=== PATIENT | female | born 1945 | race Caucasian/White ===

== ENCOUNTER 2025-02-05 13:17 | Outpatient (AMB) | payer OTHER, SELFPAY ==
--- NOTE | 2025-02-05 13:21 | A.OFFPC_ITS ---
Vital Signs 02/05/25 13:22 Height 5 ft Weight 106 lb 8 oz BMI 20.8 BP 124/78 Position Sitting Intake Visit Reasons: establish care Psychology Physician Required: No Accompanied by: everette Allergies No Known Allergies Allergy (Verified 02/05/25 13:35) Medication List - Last Reconciled 02/05/25 by Reny Lizama PA-C No Known Home Meds Tobacco use date assessed: 02/05/25 Fall risk assessment: 1 Fall in past year Last assessed Fall Risk: 02/05/25 Dental Screening Dental Screen Date: 02/05/25 Did you have a dental visit in the last 12 months?: No Did you have a dental problem in the last 6 months where you did not have access to dental care?: No Was dental information given to patient?: No HPI establish care HPI Details 79-year-old female coming to the office with the 1st time. Presenting with leg swelling and toenail fungus. Leg swelling has been ongoing for several months, associated with skin changes and fluid pooling, but no warmth. She was previously hospitalized in [place] with cellulitis of the LLE. Possible history of kidney failure diagnosed in [place], contributing to the swelling. Toenail fungus affects most toes, with topical treatment planned. SHe has bilateral bunions. [facility] Family History Mother Ovarian cancer Father No problems noted. Sister No problems noted. Social History Household Members: Family Both parents involved: No Caregiver staying overnight: Yes (daughter will be her caregiver ) Housing: House Are you a primary pet care worker to a significant other at home: No Do you presently have visiting nurse or other home services: No Alcohol intake: never Patient Tobacco Use Status: Never used Tobacco e-Cigarette/Vaping Use: Never Used service: No Current occupational status: unemployed and retired Cognitive needs: No Hearing needs: No Vision needs: No Questionnaire PHQ-9 Over the last 2 weeks, how often have you been bothered by any of the following problems? 1. Little interest or pleasure in doing things: not at all 2. Feeling down, depressed, or hopeless: several days 3. Trouble falling or staying asleep, or sleeping too much: more than half the days 4. Feeling tired or having little energy: more than half the days 5. Poor appetite or overeating: not at all 6. Feeling bad about yourself - or that you are a failure or have let yourself or your family down: several days 7. Trouble concentrating on things, such as reading the newspaper or watching t elevision: several days 8. Moving or speaking so slowly that other people could have noticed. Or the opposite - being so fidgety or restless that you have been moving around a lot more than usual: not at all 9. Thoughts that you would be better off or of hurting yourself in some way: several days Total score: 8 Depression Screening Interpretation: Positive (referral to counseling) Depression Screening Follow-up: Existing condition and Declines treatment Depression Screening Done: Yes 75252 - PHQ-9 Billing: Yes Source: Developed by Drs. Martin Jordan, Heidi Hernandez, Horacio Pagan and colleagues, with an educational candelario from [employer]. Thrive Questionnaire Date Thrive assessed: 02/05/25 I am a: Patient What is your living situation today?: I have a steady place to live Within the past 12 months, did the food you bought not last and you didn't have the money to get more?: Sometimes True Within the past 12 months, did you worry whether your food would run out before you got money to buy more?: Sometimes True Do you have trouble paying for medicines?: No Do you have trouble getting transportation to medical appointments?: No Do you have trouble paying your heating and electricity bill?: No Do you have trouble taking care of your child, family member or friend?: No Do you have trouble with day-to-day activities such as bathing, preparing meals, shopping, managing finances, etc.?: No Are you currently unemployed and looking for a job?: No Are you interested in more education?: No Please select the resources that you would like help with: Food and Utilities Currently or been in a relationship where the following occur: No concerns reported THRIVE Score: 2 AUDIT C Alcohol Use Questionnaire (AUDIT-C) 1. How often do you have a drink containing alcohol?: Never Total Score: 0 ROBIN-7 AMB Questionnaire ROBIN-7 Date ROBIN - 7 assessed: 02/05/25 Feeling nervous, anxious, or on edge: 1 = Several days Not being able to stop or control worryin = Several days Worrying too much about different things: 1 = Several days Trouble relaxin = Several days Being so restless that it is hard to sit still: 1 = Several days Becoming easily annoyed or irritable: 1 = Several days Feeling afraid as if something awful might happen: 0 = Not at all Total ROBIN-7 score (0-4 normal; 5-9 mild; 10-14 moderate; 15-21 severe): 6 Source: Developed by Drs. Martin Jordan, Heidi Hernandez, Horacio Pagan and colleagues, with an educational candelario from [employer]. ROBIN-7 Assessment Billing ROBIN-7 Assessment Tool: ROBIN-7 Assessment 83603 Review of Systems Const Denies body aches, Denies fatigue, Denies fever(s), Denies frequent falls, Denies headache(s) and Denies weakness Eyes Reports no additional complaints and Denies change in vision ENT Denies dysphagia, Denies dizziness, Denies facial pain, Denies headache(s), Denies nasal congestion and Denies odynophagia Card Denies chest pain, Denies syncope, Denies irregular heart rhythm, Denies leg edema, Denies lightheadedness and Denies dyspnea Resp Denies cough and Denies dyspnea GI Denies constipation, Denies dysphagia, Denies dyspepsia, Denies diarrhea, Denies nausea, Denies odynophagia and Denies vomiting Denies urinary frequency, Denies dysuria, Denies urinary hesitancy and Denies urinary urgency Musc Denies back pain and Denies myalgias Skin/Breast Reports system reviewed and no additional complaints, except as documented Neuro Denies dizziness, Denies syncope, Denies frequent falls, Denies headache(s) and Denies weakness Psych Reports no additional complaints Endo Denies fatigue Physical exam (Primary Care) Vital Signs: Last Vital Signs BP 124/78 02/05/25 13:22 BMI result Body Mass Index 20.8 Tobacco/Smoking Status: Tobacco use Status Tobacco use date assessed 02/05/25 02/05/25 13:35 Patient Tobacco Use Status Never used Tobacco 02/05/25 13:35 e-Cigarette/Vaping Use Never Used 02/05/25 13:35 PHQ-9: PHQ-9 Score PHQ-9: Total score 8 02/05/25 16:37 Depression Screening Interpretation: Positive (referral to counseling) Depression Screening Follow-up: Existing condition and Declines treatment Thrive Assessment: Date of Thrive Assessment Date Thrive assessed 02/05/25 02/05/25 13:35 Currently or been in a relationship where the following occur: No concerns reported Const General: cooperative, healthy appearing, comfortable and no acute distress Orientation/consciousness: patient oriented x3 HENMT Head: Yes normocephalic Ears: hearing grossly normal bilaterally General nose exam: Normal external nose present Eyes General: appearance normal, both eyes and all related structures Conjunctivae: conjunctivae normal Neck Neck: Yes full ROM and Yes no lymphadenopathy Resp Effort & Inspection: normal respiratory effort Auscultation: clear to auscultation bilaterally, no crackles, no rales, no rhonchi and no wheezes Cardio Rate: regular rate Rhythm: regular rhythm Skin General skin exam: no rashes or lesions noted Neuro General: patient oriented x3 Gait exam (Neuro): Normal gait present Extrem Other: Mild edema of bilateral lower extremities with overlying skin changes in dry flaky skin. No erythema, warmth, tenderness to palpation in bilateral lower extremities includes in the calves. Intact strength, sensation and pulses in bilateral lower extremities. Yellow thickened toenails affecting all toes and bilateral bunions General: Yes normal to inspection, Yes full ROM and No edema Psych Affect: normal affect Attitude: cooperative Insight: Good insight present (Psych) Judgement: Good judgement present (Psych) Coding Level of Care Code New Pt Level 4 (53943) Diagnoses Depression F32.A Anxiety F41.9 Lower extremity weakness R29.898 Leg swelling M79.89 Onychomycosis B35.1 Additional Codes ROBIN-7 Assessment Billing - ROBIN-7 Assessment Tool: ROBIN-7 Assessment 02905 ([id number]) PHQ-9 - 74717 - PHQ-9 Billing: Yes ([id number]) Assessment & Plan Assessment & Plan (1) Depression: Code(s): F32.A - Depression, unspecified Category: Medical Plan: For depression and anxiety we did talk about possible treatment with medication which was declined today. She is willing to see a counselor and agrees to reach out if she would like additional resources or medical management. (2) Anxiety: Code(s): F41.9 - Anxiety disorder, unspecified Category: Medical Plan: See above. (3) Lower extremity weakness: Code(s): R29.898 - Other symptoms and signs involving the musculoskeletal system Category: Medical Plan: Patient reporting lower extremity weakness secondary to prolonged hospital stay while [place]. Referral was placed to physical therapy today as it feels to be beneficial for her. (4) Leg swelling: Code(s): M79.89 - Other specified soft tissue disorders Category: Medical Plan: Patient having bilateral leg swelling with overlying skin changes and dry flaky skin. Ordered for blood work to look for underlying cause including kidney function and BNP. It also offer a vascular workup including a referral to nd scular surgery which was declined by the patient today. Given her history of cellulitis I did review red flag symptoms and when to present for re-evaluation. At this time low concern for infection as there is no erythema, tenderness to palpation, warmth and no calf tenderness. In the meantime recommend patient exercise as tolerated, elevate the legs when possible and compression stockings. (5) Onychomycosis: Code(s): B35.1 - Tinea unguium Category: Medical Plan: Prescription sent for topical treatment. Plan I discussed with the patient the importance of managing leg swelling through lifestyle modifications such as leg elevation and compression stockings. We also talked about the need for blood work to assess kidney function and other potential causes of swelling. The patient was informed about the treatment options for toenail fungus, including topical and oral medications. Referrals for eye care and physical therapy were also arranged to address her overall health maintenance needs. This note was constructed using voice recognition software. While every effort has been made to ensure accuracy and pulmonary specialist, still areas may have been included sometimes these areas may affect the content or meeting of the given symptoms. Total time spent caring for the patient today was 30 minutes. This includes time spent before the visit reviewing the chart, time spent during the visit, and time spent after the visit and documentation. Patient was informed and verbally consented to the use of an ambient scribe for clinic note documentation during this visit. Orders: Orders TSH reflex Free T4 02/05/25 Z13.29 - Encounter for screening for other suspected endocrine disorder Vitamin D 25-OH Total 02/05/25 Z13.21 - Encounter for screening for nutritional disorder B Type Natriuretic Peptide 08/27/25 M79.89 - Other specified soft tissue disorders Vitamin B12 and Folate 02/05/25 Z13.21 - Encounter for screening for nutritional disorder Lipid Panel 02/05/25 Z13.220 - Encounter for screening for lipoid disorders PT Evaluation and Treatment 02/05/25 R29.898 - Other symptoms and signs involving the musculoskeletal system Complete Blood Count Auto Diff 02/05/25 M79.89 - Other specified soft tissue disorders, Z00.00 - Encounter for general adult medical examination without abnormal findings Comprehensive Met. Panel 02/05/25 M79.89 - Other specified soft tissue disorders, Z00.00 - Encounter for general adult medical examination without abnormal findings Referrals Optometry Referral Z00.00 - Encounter for general adult medical examination without abnormal findings Counseling Referral F32.A - Depression, unspecified, F41.9 - Anxiety disorder, unspecified Medications: New ciclopirox 8% 1 appl topical BEDTIME 6.6 mL 0RF 4 weeks
[2025-02-05 13:22] VITALS: BP 124/78; BMI 20.8
--- OUTSIDE RECORDS SUMMARY | 2025-02-05 14:00 | XMS_ITS | Patient Health Record ---
Author Organization [facility] Address [address] [place] [address] Care Team Providers Care Respiratory Support Technician Name Role Phone Stevenson READ, Xochilt Primary Care Provider Eulalio Grijalva Unavailable [phone] Allergies Allergen (clinical drug ingredient) Drug/Non Drug Allergy documented on EMR Reaction Allergy Type Onset Date Status nabumetone Relafen (uncoded) Unknown Allergy A ctive Reason For Referral No Information Medications Medication SIG (Take, Route, Frequency, Duration) Notes Start Date End Date Status Multivitamin Adult - Orally Active Omeprazole 20 MG 2 capsules Orally On ce a day Active Potassium Bicarb & Chloride 25 MEQ 1 tablet with meals Orally Twice a day Active Diclofenac Sodium 1 % Transdermal Active Raloxifene HCl 60 MG 1 tablet Orally Onc e a day Active Social History Tobacco use other than smoking: Question Answer Notes Are you an other tobacco user? No Problems Problem Type SNOMED Code ICD Code Onset Dates Problem Status W/U Status Risk Notes Problem Primary osteoarthritis , right ankle and foot (M19.071) Active confirmed Plan Of Treatment No Information Insurance Providers Payer Name Payer Address Payer Phone Subscriber Number Group Number Insured Name Patient Relationship to Insured Coverage Start Date Coverage End Date [facility] [address] [place] [address] [id number] Selene Fleming Self - patient is the insured Medical (General) History Medical History History ICD Code osteoarthritis Depression chronic kidney disease stage 3 Periodic Limb Movement Disorder Post Traumatic Stress Disorder Reflux ( GERD) Rheumatoid arthritis Colonic polyps fatigue Osteoporosis Sleep apnea Surgical History Surgery Date(Month/Year) right hip break surgery 2000
--- OUTSIDE RECORDS SUMMARY | 2025-02-05 14:00 | XMS_ITS | Patient Health Record ---
Author Organization [facility] Address [address] [place] [address] Support Name Relationship Address Phone SHERRILL MACHADO Guarantor Unknown Reason For Referral No Information Medications Medication SIG (Take, Route, Fr equency, Duration) Notes Start Date End Date Status Folic Acid 1MG 1 ORAL daily; Duration: -3 Reinier-MJ 08/30/19 12 Active K-dur 20MEQ 2 ORAL DAILY; Duration: -3 Reinier-MJ 08/30/2011 Active Methotrexate 2.5MG 1 ORAL EVERY WEEK; Duration: -3 Reinier-MJ 07/19/2011 Active Multivitamins 1 ORAL daily; Duration: -3 Reinier-MJ 1 Active Reclast 5MG/100ML 100ML Intravenous AN NUALLY; Duration: -3 Reinier-MJ 04/12/2011 Active Problems Problem Type SNOMED Code ICD Code Onset Dates Problem Status W/U Status Risk Notes Problem Obesity (213862913) Obesity, unspecified (278.00) Active confirmed Major Problem Depressive disorder (28884798) Depressive disorder, not elsewhere classified (311) Active confirmed Major Problem Rotator cuff syndrome of shoulder and allied disorders (726.1) Active confirmed Other Problem Disorder of bursae of shoulder region (46079001) Unspecified disorders of bursae and tendons in shoulder region (726.10) Active confirmed Other Problem Generalized osteoarthrosis (257694111) Osteoarthrosis, generalized (715.0) Active confirmed Major Problem 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) Osteoarthrosis, unspecified whether generalized or localized, shoulder region (715.91) Active confirmed Major Problem Shoulder joint pain (514155825) Pain in joint, shoulder region (719.41) Active confirmed Diag Problem Osteoporosis (66000002) Unspecified osteoporosis (733.00) Active confirmed Major Problem Syncope and collapse (671929244) Syncope and collapse (780.2) Active confirmed Diag Problem Dizziness and giddiness (200802769) Dizziness and giddiness (780.4) Active confirmed Diag Problem Insomnia (610468473) Insomnia, unspecified (780.52) Active confirmed Major Plan Of Treatment No Information Insurance Providers Payer Name Payer Address Payer Phone Subscriber Number Group Number Insured Name Patient Relationship to Insured Coverage Start Date Coverage End Date [facility] [address] [place] [address] [id number] SHERRILL AVILA Self - patient is the insured
--- OUTSIDE RECORDS SUMMARY | 2025-02-05 14:00 | XMS_ITS | Clinical Summary ---
Author Organization [facility] Address [address] [place] [address] Phone Care Team Providers Care Diesel Locomotive Engineer Name Role Phone Amanda Mullen I [facility] Primary Care Provider + Allergies No known active allergies Medications ascorbic acid (VITAMIN C) 500 MG tablet Take 500 mg by mouth 1 (one) time each day Active Multiple Vitamin (MULTIVITAMIN PO) Take by mouth Active Denosumab (Prolia) 60 MG/ML solution prefilled syringe Inject 60 mg under the skin 12/22/2023 Active traZODone (DESYREL) 100 MG tablet Take 1 tablet by mouth at bed time 12/22/2023 Active omeprazole OTC (PriLOSEC OTC) 20 MG EC tablet Take 1 capsule by mouth 1 (one) time each day 12/22/2023 Active mirtazapine (REMERON) 45 MG tablet Take 1 tablet by mouth every night 12/22/2023 Active gabapentin (NEURONTIN) 300 MG capsule Take 1 capsule by mouth 1 (one) time each day 01/15/2024 Active potassium chloride (KLOR-CON M20) 20 MEQ CR tablet Take 1 tablet by mouth 1 (one) time each day 05/27/2024 Active Active Problems Problem Noted Date Diagnosed Date Bilateral rheumatoid arthritis of hands 05/30/20 24 Stage 3b chronic kidney disease 12/22/2023 Hyperlipidemia 12/22/2023 Encounters Date Type Department Care Team Description 12/15/2024 Orders Only [facility] [address] [place] [address] Carlos Morales MD Chronic kidney disease stage 3A (HCC) from Last 3 Months Immunizations Immunization Administration Dates Next Due Influenza, Quadrivalent, Preservative Free 05/17 Influenza, Recombinant, Quadrivalent, Pf 022,04/29/2021,04/22/2020 Moderna SARS-COV-2 08/25/2020,07/22/2020 Pfizer SARS-COV-2 05/19/2021 Pneumococcal Conjugate 13-Valent 12/11/2020,12/10 Pneumococcal Polysaccharide 02/01/2022, 9,04/26/2011 Td 01/27/2006 Tdap 02/24/2023 Zoster 12/02/2008 Family History Medical History Relation Comments Ovarian cancer Mother Breast cancer Sister 1 Rheum arthritis Sister 2 Dementia Sister 3 Relation Status Comments Father Mother Sister 1 Sister 2 Alive Sister 3 Alive Social History Tobacco Use Types Packs/Day Years Used Date Smoking Tobacco: Former Cigarettes Smokeless Tobacco: Never Tobacco Cessation:Counseling Given: Not Answered Comments Unknown Sex and Gender Information Value Date Recorded Sex Assigned at Not on file Legal Sex Female 9:57 AM EST Gender Identity Not on file Sexual Orientation Not on file Last Filed Vital Signs Vital Sign Reading Time Taken Comments Blood Pressure 102/60 06/17/2024 1:[address] Pulse 70 06/17/2024 1:[address] Temperature - - Respiratory Rate - - Oxygen Saturation 98% 06/17/2024 1:[address] Inhaled Oxygen Concentration - - Weight 51.3 kg (113 lb) 06/17/2024 1:[address] Height 157.5 cm (5' 2 ) 06/17/2024 1:[address] Body Mass Index 20.67 06/17/2024 1:[address] Plan of Treatment Health Maintenance Due Date Last Done Comments Influenza Vaccine (#1) 2025 2, 04/29/2021, 04/22/2020, Additional history exists Pneumococcal Vaccine: 50+ Years Completed 02/01/2022, 12/11/2020, 02/14/2019, Additional history exists Hepatitis B Vaccine Aged Out No longe r eligible based on patient's age to complete this topic Insurance Medicare [facility] [address] [place], [place] [id number] Care Teams Diesel Locomotive Engineer Relationship Specialty Start Date End Date Amanda Mullen FNP [address] [place] [address] PCP - General Family Medicine 05/01/24
== END 2025-02-05 14:18 | disposition home or self-care (01) ==
DX: F32.A Depression, unspecified (principal); F41.9 Anxiety disorder, unspecified; R29.898 Other symptoms and signs involving the musculoskeletal system; M79.89 Other specified soft tissue disorders; B35.1 Tinea unguium

== ENCOUNTER → 2025-02-05 13:17 | Outpatient (BNVA) | payer OTHER, SELFPAY | DX: B35.1 Tinea unguium (principal); F41.9 Anxiety disorder, unspecified; F32.A Depression, unspecified; R29.898 Other symptoms and signs involving the musculoskeletal system; M79.89 Other specified soft tissue disorders | CPT/HCPCS: 96127 ==

== ENCOUNTER 2025-04-15 11:38 | Outpatient (REF) | payer OTHER, SELFPAY ==
[2025-04-15 12:02] LABS: MANUAL DIFF FLAG NO
[2025-04-15 12:33] LABS: Hematocrit 28.9 % (37.0-47.0); Hemoglobin 8.8 g/dl (12.0-16.0); Imm Gran Abs Auto 0.03 X10*3/uL (0.00-0.03); Imm Gran Pct Auto 0.4 % (0.0-0.4); Lymphocytes Absolute Auto 1.7 X10*3/uL (1.2-4.9); Mean Corpuscular HGB Conc 30.4 g/dl (31.0-35.0); Mean Corpuscular Hemoglobin 26.4 pg (27.0-33.0); Mean Corpuscular Volume 86.8 fL (80.0-98.0); NRBC Abs Auto 0.000 X10*3/uL (0.0-0.012); NRBC Pct Auto 0.0 /100WBC (0.0-0.2); Platelet Count 398 X10*3/uL (160-400); Red Blood Count 3.33 X10*6/uL (4.20-5.50); White Blood Count 8.5 X10*3/uL (4.8-10.8)
[2025-04-15 13:23] LABS: NT Pro B Type Natriuretic Pept 574.9 pg/mL (<300)
[2025-04-15 13:29] LABS: Alanine Aminotransferase < 6 U/L (0-31); Albumin Level 3.1 g/dL (3.5-5.0); Alkaline Phosphatase 69 U/L (39-117); Anion Gap 11 (12-20); Aspartate Amino Transferase 21 U/L (5-31); Blood Urea Nitrogen 16 mg/dL (9-16); Calcium 9.7 mg/dL (8.4-10.2); Carbon Dioxide 32 mmol/L (22-29); Chloride 100 mmol/L (96-108); Cholesterol 135 mg/dL (<200); Estimated Glomerular Filt Rate 43; HDL Cholesterol 37 mg/dL (>40); Potassium 3.6 mmol/L (3.3-5.1); Sodium 139 mmol/L (135-145); Total Protein 6.1 g/dL (6.5-8.0); Triglycerides 113 mg/dL (<150)
[2025-04-15 13:52] LABS: Iron 25 mcg/dL (30-160); Percent Iron Saturation 17 % (15-50); Total Iron Binding Capacity 146 mcg/dL (228-428); Unsaturated Iron Binding 121 ug/dL
[2025-04-15 13:53] LABS: Folate 11.0 ng/mL (> or = 4.0); Vitamin B12 578 pg/mL (200-900)
[2025-04-15 14:06] LABS: Ferritin 295 ng/mL (10-250)
--- OUTSIDE RECORDS SUMMARY | 2025-04-15 14:24 | XMS_ITS | Patient Health Record ---
Author Organization [facility] Address [address] [place] [address] Support Name Relationship Address Phone SHERRILL MACHADO [...] Status W/U Status Risk Notes Problem Obesity (797034368) Obesity, unspecified (278.00) Active confirmed Major Problem Depressive disorder (05263876) Depressive disorder, not elsewhere classified (311) Active confirmed Major Problem Rotator cuff syndrome of shoulder and allied disorders (726.1) Active confirmed Other Problem Disorder of bursae of shoulder region (57893459) Unspecified disorders of bursae and tendons in shoulder region (726.10) Active confirmed Other Problem Generalized osteoarthrosis (963573011) Osteoarthrosis, generalized (715.0) Active confirmed Major Problem Degenerative joint disease of shoulder region (97939832) Osteoarthrosis, unspecified whether generalized or localized, shoulder region (715.91) Active confirmed Major Problem Shoulder joint pain (409042636) Pain in joint, shoulder region (719.41) Active confirmed Diag Problem Osteoporosis (33835435) Unspecified osteoporosis (733.00) Active confirmed Major Problem Syncope and collapse (612057997) Syncope and collapse (780.2) Active confirmed Diag Problem Dizziness and giddiness (016702439) Dizziness and giddiness (780.4) Active confirmed Diag Problem Insomnia (577613840) Insomnia, unspecified (780.52) Active confirmed Major Plan Of Treatment No Information Insurance Providers Payer Name Payer Address Payer Phone Subscriber Number Group Number Insured Name Patient Relationship to Insured Coverage Start Date Coverage End Date [facility] [address] [place] [address] [id number] SHERRILL AVILA Self - patient is the insured
--- OUTSIDE RECORDS SUMMARY | 2025-04-15 14:24 | XMS_ITS | Clinical Summary ---
Author Organization [facility] Address [address] [place] [address] Phone Care Team Providers Care Belt Puncher Name Role Phone Amanda Mullen Ben [facility] Primary Care Provider [phone] Allergies No known active allergies Medications ascorbic [...] 3b chronic kidney disease 12/22/2023 Hyperlipidemia 12/22/2023 Immunizations Immunization Administration Dates Next Due Influenza, [...] Comments Blood Pressure 102/60 06/17/2024 1:54 PM POPULATION GENETICIST Pulse 70 06/17/2024 1:54 PM POPULATION GENETICIST Temperature - - Respiratory Rate - - Oxygen Saturation 98% 06/17/2024 1:54 PM POPULATION GENETICIST Inhaled Oxygen Concentration - - Weight 51.3 kg (113 lb) 06/17/2024 1:54 PM POPULATION GENETICIST Height 157.5 cm (5' 2 ) 06/17/2024 1:54 PM POPULATION GENETICIST Body Mass Index 20.67 06/17/2024 1:54 PM POPULATION GENETICIST Plan of Treatment Health Maintenance Due Date Last Done Comments Influenza Vaccine (#1) 2025 2, 04/29/2021, 04/22/2020, Additional history exists Pneumococcal Vaccine: 50+ Years Completed 02/01/2022, 12/11/2020, 02/14/2019, Additional history exists Hepatitis B Vaccine Aged Out No longe r eligible based on patient's age to complete this topic Insurance [place] [address] [place] [address] Care Teams Belt Puncher Relationship Specialty Start Date End Date Amanda Mullen FNP [address] [place] [id number] PCP - General Family Medicine 05/01/24
--- OUTSIDE RECORDS SUMMARY | 2025-04-15 14:24 | XMS_ITS | Patient Health Record ---
Author Organization [facility] Address [address] [place] [address] Care Team Providers Care Cook'S Assistant Name Role Phone Stevenson READ, Xochilt Primary Care Provider Eulalio Grijalva Unavailable [phone] Allergies Allergen (clinical drug ingredient) Drug/Non Drug [...] Problem Status W/U Status Risk Notes Problem Localized, primary osteoarthritis of the ankle and/or foot ([id number]) Primary osteoarthrit is, right ankle and foot (M19.071) Active confirmed Plan Of Treatment No Information Insurance Providers Payer Name Payer Address Payer Phone Subscriber Number Group Number Insured Name Patient Relationship to Insured Coverage Start Date Coverage End Date [facility] [place] [address] [place] [phone] [id number] Selene Fleming Self - patient is the insured Medical (General) History Medical History History ICD Code osteoarthritis Depression chronic kidney disease stage 3 Periodic Limb Movement Disorder Post Traumatic Stress Disorder Reflux ( GERD) Rheumatoid arthritis Colonic polyps fatigue Osteoporosis Sleep apnea Surgical History Surgery Date(Month/Year) right hip break surgery 2000
== END 2025-04-15 11:39 | disposition home or self-care (01) ==
LOC: HO.LAB 11:38
DX: Z00.00 Encounter for general adult medical examination without abnormal findings (principal); Z13.29 Encounter for screening for other suspected endocrine disorder; Z13.220 Encounter for screening for lipoid disorders; Z13.6 Encounter for screening for cardiovascular disorders; Z13.21 Encounter for screening for nutritional disorder; M79.89 Other specified soft tissue disorders
CPT/HCPCS: 36415; 80053; 80061; 82306; 82607; 82728; 82746; 83540; 83880; 84443; 85025

== ENCOUNTER 2025-04-29 12:12 | Emergency (ER) | payer MEDICARE, OTHER, SELFPAY ==
--- NOTE | ~2025-04-29 | XR_ITS ---
EXAMINATION: XR KNEE, LEFT CLINICAL INFORMATION: pain, swelling COMPARISON: None available. TECHNIQUE: Four views of the left knee. FINDINGS: Bone mineralization is decreased. Moderate medial and lateral compartment arthritis, joint space loss, marginal osteophytes. Subtle subchondral lucency in the weightbearing femoral condyle. No acute fractures identified. Patellofemoral joint space narrowing on the lateral view. Small effusion. XR/XR knee LT 4V IMPRESSION: Tricompartment osteoarthritis. Moderate medial and lateral compartment arthritis. Small effusion. Electronically signed by: Fox Sandoval MD 04/29/2025 02:05 PM [facility]
--- NOTE | ~2025-04-29 | XR_ITS ---
EXAMINATION: XR CHEST CLINICAL INFORMATION: Eval for edema COMPARISON: None available. TECHNIQUE: Frontal view of the chest was obtained. FINDINGS: There is mild prominence of the azygos vein and superior vena cava. Heart size is within normal limits. Mild coarsening of markings are seen. No pulmonary edema is noted. There is obliteration of the subacromial space on the right with sclerosis of the acromion and abutment with the humeral head. Humeral head. It shows subchondral sclerosis and marginal osteophyte formation medially. There is also moderate narrowing of the left subacromial space and medial marginal osteophyte involving humeral head. XR/XR chest 1V IMPRESSION: Mild prominence of the vascular pedicle could indicate fluid overload, but there is no gross pulmonary edema. Bilateral full-thickness rotator cuff tears with rotator cuff arthropathy on the right. Mild to moderate degenerative changes involving both glenohumeral joints, left greater than right. Electronically signed by: Magdy Lala MD 04/29/2025 02:03 PM [facility]
--- NOTE | ~2025-04-29 | US_ITS ---
EXAMINATION: US TRIPLEX LOWER EXTREMITY, LEFT CLINICAL INFORMATION: Left lower extremity pain and edema COMPARISON: None available. TECHNIQUE: Color-flow triplex imaging with spectral analysis and compression Doppler were performed on the left lower extremity. FINDINGS: Respiratory variation, normal compression and augmented flow are noted throughout the left lower extremity. The visualized common femoral vein, superficial femoral vein, profunda femoral vein, popliteal vein and midcalf peroneal and posterior tibial venous segments show no evidence of deep venous thrombosis. The proximal great saphenous vein is noncompressible and demonstrates no flow on color Doppler. In the region of the patient's pain in the anterior knee, there is a hypoechoic area with irregular angular margins and increased blood flow on color Doppler. Images through the calf region demonstrate moderate subcutaneous edema. US/US venous duplex LE LT IMPRESSION: No evidence of deep venous thrombosis involving the left lower extremity. Proximal left greater saphenous vein thrombosis, possibly iatrogenic/post-treatment. Saphenofemoral junction is patent. In the region of the patient's pain in the anterior to the knee, there is an irregular hypoechoic collection with increased blood flow. This could represent joint effusion or synovitis, however other etiologies such as early abscess or hematoma is not ruled out. Electronically signed by: Magdy Lala MD 04/29/2025 01:34 PM NIGEL
--- NOTE | 2025-04-29 12:27 | ED.GENADULT ---
HPI - General Adult General Chief complaint: Extremity Problem Stated complaint: Blood Clot Time Seen by Provider: 04/29/25 12:48 Source: patient, family and old records reviewed Mode of arrival: ambulatory Limitations: no limitations History of Present Illness ED Provider: MICHAEL NEGRON narrative: 79-year-old female with past medical history of anxiety, depression, leg swelling, anemia she presents with her granddaughter who is her armature winder helper repair they both complain of increased lower extremity edema that really has been present for several months. She notes that her left leg appears more swollen over the last few days. She has not taken any diuretics, she does not like compression stockings. She has remote history of elevated BNP in the past but does not take any medicine for heart failure in the past. She has chronic pink rash to both legs but nothing increased recently. MD complaint: Leg swelling Onset (ago): month(s) (Several) Location: left, right and lower extremity Radiation: non-radiation Severity: moderate Quality: aching Pain Consistency: constant Relieving factors: none Exacerbating factors: movement Associated symptoms: denies other symptoms Related Data Previous Rx's ?Medication ?Instructions ?Recorded efinaconazole 10 % topical 1 appl topical BEDTIME #4 mL 02/07/25 solution with applicator (Jublia) furosemide 20 mg tablet (Lasix) 10 mg (1/2 x 20 mg) PO DAILY #5 04/29/25 tabs Allergies Allergy/AdvReac Type Severity Reaction Status Date / Time No Known Allergies Allergy Verified 04/29/25 12:30 Review of Systems Review of Systems: Constitutional : No Fever, No Chills, No Fatigue ENT/Mouth : No sore throat, No Rhinorrhea Eyes: No Eye Pain, No Swelling, No Redness Cardiovascular : No Chest Pain, No SOB, No Dyspnea on Exertion, positive leg edema Respiratory : No Cough, No Sputum Gastrointestinal : No Nausea, No Vomiting, No Diarrhea, No abdominal Pain Genitourinary : No Dysuria, No Urinary Frequency, No Hematuria, Musculoskeletal : No joint pain, No Myalgias, No Joint Swelling Skin : No Skin Lesions, No rash Neuro : No Weakness, No Numbness, No Dizziness, no Headache All other systems reviewed and are negative PMFSH Past Medical History Attestation statement: The following information was validated with the patient. Source: old records reviewed Medical History (Updated 04/29/25 @ 13:46 by Orquidea Espinoza DO) Leg swelling Elevated brain natriuretic peptide (BNP) level Anxiety Depression Family History Family History Mother Ovarian cancer Father No problems noted. Sister No problems noted. Social History Social History Household Members: Family Housing: House Are you a primary family day carer to a significant other at home: No Do you presently have visiting nurse or other home services: No Alcohol intake: never Patient Tobacco Use Status: Never used Tobacco e-Cigarette/Vaping Use: Never Used service: No Current occupational status: unemployed and retired Cognitive needs: No Hearing needs: No Vision needs: No Physical Exam ED Vital Signs: Vital Signs - 24 hr 04/29/25 12:28 Temperature 98.4 F Pulse Rate 65 Respiratory Rate 16 Blood Pressure 111/54 L Pulse Oximetry 99 Oxygen Delivery Method Room Air BMI result Body Mass Index 21.0 Appearance: Alert. Oriented X3. No acute distress. Eyes: Pupils equal, round and reactive to light. ENT: Pharynx normal. Neck: Normal inspection. Neck supple. CVS: Normal heart rate and rhythm. Pulses normal. Respiratory: No respiratory distress. Breath sounds normal. Abdomen: Soft and nontender. Skin: Skin warm and dry. Normal skin color. Normal skin turgor. Extremities: Bilateral 1+ pitting edema left greater than right that starts on the dorsum of the foot to the mid calf. She has distal pulses intact. She has faint pink rash but no acute cellulitis, no abscess felt. Her left knee does have a small effusion but it is not red, hot, I can arrange it but she does have some discomfort there is no signs of septic joint on arrival. All of her compartments Neuro: Oriented X 3. No motor deficit. No sensory deficit. CN2-12 intact Course Course Course Narrative: This is an RME: Additional HPI, ROS, PE not included below will be deferred to primary provider. RME assessment and note performed by: Esme Razo PA-C This is a 66-[id number]-mcd-female, with no known medical problems, who presents to the ER with concerns of acute on chronic left leg pain and swelling. Hx of similar, ongoing for months, but worsened today. Was sent from to r/o DVT. Pt does not go to the doctors, unknown last time she saw a doctor for routine screening. Non smoker. No hx of DVTs. No recent surgeries, hospitalizations. Per note from January, pt had hx of kidney failure. Plan: Labs, US, further ER eval needed Medical Decision Making Medical Decision Making [facility] Narrative: 79-year-old female with past medical history of anxiety, depression, leg swelling, anemia now here with persistent swelling of the legs but she denies any chest pain or trouble breathing. She has edema localized to the lower legs. She has no signs of infection on my exam. I am going to obtain EKG, chest x-ray, basic labs including BNP as well as DVT study of the left lower extremity. If her kidney function is reassuring I will start her short course of Lasix I did discuss risks benefits of Lasix with her and her granddaughter Differential Diagnosis Differential Diagnoses: The differential diagnosis associated with the presentation includes CHF, peripheral edema, venous stasis, DVT Admission/Observation Consideration of admission/observation: Escalation of care including admission/observation considered At this time her symptoms have been going for a long time she can be started on diuretic We will direct compression as well as short course Lasix Lab Data [facility] Lab Attestation statement: I reviewed the patient's lab results. Her kidney functions at baseline I will put her on 10 mg of Lasix daily for 5 days 04/29/25 13:03 04/29/25 13:03 Labs: Lab Results 04/29/25 Range/Units 13:03 WBC 8.5 (4.8-10.8) X10*3/uL RBC 3.64 L (4.20-5.50) X10*6/uL Hgb 9.6 L (12.0-16.0) g/dl Hct 31.8 L (37.0-47.0) % MCV 87.4 (80.0-98.0) fL MCH 26.4 L (27.0-33.0) pg MCHC 30.2 L (31.0-35.0) g/dl RDW 14.0 (11.0-16.0) % Plt Count 438 H (160-400) X10*3/uL MPV 8.8 L (9.4-12.3) fL Immature Gran % (Auto) 0.2 (0.0-0.4) % Neut % (Auto) 70.6 (45-73) % Lymph % (Auto) 18.7 L (20-40) % Shoshone % (Auto) 6.9 (2-11) % Eos % (Auto) 2.8 (0-4) % Baso % (Auto) 0.8 (0-2) % Lymph # (Auto) 1.6 (1.2-4.9) X10*3/uL Shoshone # (Auto) 0.6 (0.1-1.2) X10*3/uL Eos # (Auto) 0.2 (0.0-0.4) X10*3/uL Baso # (Auto) 0.1 (0.0-0.2) X10*3/uL Abs Immat Gran (auto) 0.02 (0.00-0.03) X10*3/uL Absolute Neuts (auto) 6.0 (2.0-8.3) x10*3/uL Absolute Nucleated RBC 0.000 (0.0-0.012) X10*3/uL Nucleated RBC % (auto) 0.0 (0.0-0.2) /100WBC Sodium 143 (135-145) mmol/L Potassium 3.7 (3.3-5.1) mmol/L Chloride 104 (96-108) mmol/L Carbon Dioxide 29 (22-29) mmol/L Anion Gap 14 (12-20) BUN 16 (9-16) mg/dL Creatinine 1.31 (0.5-1.4) mg/dL Estim Creat Clear Calc 28.0 Estimated GFR 39 Random Glucose 83 (60-115) mg/dL Calcium 9.6 (8.4-10.2) mg/dL Total Bilirubin 0.2 (0.0-1.0) mg/dL Direct Bilirubin < 0.2 (0.0-0.5) mg/dL AST 24 (5-31) U/L ALT 7 (0-31) U/L Alkaline Phosphatase 87 (39-117) U/L NT-Pro-B Natriuret Pep 665.8 H (<300) pg/mL Total Protein 6.8 (6.5-8.0) g/dL Albumin 3.3 L (3.5-5.0) g/dL Independent Interpretation I performed an independent interpretation of an: EKG, Plain X-Ray (No pneumonia) and Ultrasound (Superficial clot but no deep clot) Interpretation: Rate: 51 Rhythm: Sinus bradycardia [place]: Normal Normal P waves. Normal YESICA. Normal QRS complex. ST T wave : Normal no ST-elevation qTC: 407 prior studies: The study has been interpreted contemporaneously by me. . Radiology Impression Discussion of test interpretation with radiology: I have reviewed the radiologist's reading. Independent Historian Clinical information obtained from an independent historian. History obtained from or confirmed by: Other (Granddaughter) External Record Review External record reviewed: Outpatient record Discharge Plan Discharge Clinical Impression: Leg edema Superficial thrombophlebitis Qualifiers: Superficial thrombophlebitis-Involved body area: lower extremity Laterality: left Qualified Code(s): I80.02 - Phlebitis and thrombophlebitis of superficial vessels of left lower extremity Patient Disposition: Home, Self-Care Instructions: Furosemide (By mouth), Superficial Thrombophlebitis (ED), Leg Edema (ED) Additional Instructions: Your x-ray of the knee showed arthritis, your chest x-ray showed a little bit of fluid in the lung but very minor, your CHF marker is around her baseline there is no increased rise from prior testing There is no deep blood clot noted on the ultrasound there is a superficial blood clot but this should not cause any issues and should resolve on its own. At this time I would use either Facundo wrap, soccer socks, compression stockings to also alleviate the swelling in your legs, take the Lasix as prescribed but hold if your blood pressure top number is less than 100 Please follow up with your primary care doctor as soon as possible Return for any worsening symptoms such as chest pain, shortness of breath, increased redness, increased swelling or any other concern Prescriptions: New furosemide [Lasix] 20 mg tablet 10 mg PO DAILY Qty: 5 0RF No Action Jublia 10 % solution with applicator 1 appl topical BEDTIME Qty: 4 0RF Print Language: Khmer
[2025-04-29 12:28] VITALS: BP 111/54; PULSE 65; RESP 16; TEMP 36.9; O2SAT 99; BMI 21.0
[2025-04-29 13:07] LABS: MANUAL DIFF FLAG NO
[2025-04-29 13:08] LABS: Hematocrit 31.8 % (37.0-47.0); Hemoglobin 9.6 g/dl (12.0-16.0); Imm Gran Abs Auto 0.02 X10*3/uL (0.00-0.03); Imm Gran Pct Auto 0.2 % (0.0-0.4); Lymphocytes Absolute Auto 1.6 X10*3/uL (1.2-4.9); Mean Corpuscular HGB Conc 30.2 g/dl (31.0-35.0); Mean Corpuscular Hemoglobin 26.4 pg (27.0-33.0); Mean Corpuscular Volume 87.4 fL (80.0-98.0); NRBC Abs Auto 0.000 X10*3/uL (0.0-0.012); NRBC Pct Auto 0.0 /100WBC (0.0-0.2); Platelet Count 438 X10*3/uL (160-400); Red Blood Count 3.64 X10*6/uL (4.20-5.50); White Blood Count 8.5 X10*3/uL (4.8-10.8)
[2025-04-29 13:24] LABS: Alanine Aminotransferase 7 U/L (0-31); Albumin Level 3.3 g/dL (3.5-5.0); Alkaline Phosphatase 87 U/L (39-117); Anion Gap 14 (12-20); Aspartate Amino Transferase 24 U/L (5-31); Blood Urea Nitrogen 16 mg/dL (9-16); Calcium 9.6 mg/dL (8.4-10.2); Carbon Dioxide 29 mmol/L (22-29); Chloride 104 mmol/L (96-108); Creatinine Clr Calc Pharmacy 28.0; Estimated Glomerular Filt Rate 39; Potassium 3.7 mmol/L (3.3-5.1); Sodium 143 mmol/L (135-145); Total Protein 6.8 g/dL (6.5-8.0)
[2025-04-29 13:31] LABS: NT Pro B Type Natriuretic Pept 665.8 pg/mL (<300)
--- NOTE | 2025-04-29 13:32 | ECG_ITS ---
Test Reason : EDEMA Blood Pressure : */* mmHG Vent. Rate : 51 BPM Atrial Rate : 51 BPM P-R Int : 142 ms QRS Dur : 96 ms QT Int : 442 ms P-R-T Axes : 37 18 27 degrees QTcB Int : 407 ms Sinus bradycardia Low voltage QRS Borderline ECG No previous ECGs available Referred By: Orquidea Espinoza Electronically Signed By: SARAH BETH WOODARD
== END 2025-04-29 14:49 | disposition home or self-care (01) ==
PROVIDERS: Physician Assistant Medical; Emergency Provider Emergency Medicine
DX: I80.02 Phlebitis and thrombophlebitis of superficial vessels of left lower extremity (principal)
CPT/HCPCS: 36415; 71045; 73564; 80048; 80076; 83880; 85025; 93005; 93971; 99283; 99284

== ENCOUNTER → 2025-04-29 12:29 | Outpatient (BNV) | payer OTHER, SELFPAY | PROVIDERS: Emergency Provider Emergency Medicine; Visit Provider Radiology Diagnostic Radiology | DX: I82.812 Embolism and thrombosis of superficial veins of left lower extremity (principal); M17.12 Unilateral primary osteoarthritis, left knee; M75.121 Complete rotator cuff tear or rupture of right shoulder, not specified as traumatic; M19.011 Primary osteoarthritis, right shoulder; M19.012 Primary osteoarthritis, left shoulder | CPT/HCPCS: 71045; 73564; 93971 ==

== ENCOUNTER → 2025-04-29 13:32 | Outpatient (BNV) | payer OTHER, SELFPAY | PROVIDERS: Emergency Provider Emergency Medicine; Visit Provider Internal Medicine | DX: R00.1 Bradycardia, unspecified (principal) | CPT/HCPCS: 93010 ==

== ENCOUNTER 2025-05-15 08:59 | Outpatient (AMB) | payer OTHER, SELFPAY ==
--- NOTE | 2025-05-15 09:07 | MHC.PC.OV ---
Vital Signs 05/15/25 09:08 Height 5 ft Weight 112 lb 2 oz BMI 21.9 BP 120/62 Blood Pressure Location Lt brachial Position Sitting Pulse 57 Pulse Source Pulse Oximeter Temp 97.1 F Temp Source Temporal Artery Scan Pulse Oximetry (%) 95 Oxygen Delivery Method Room Air Intake Visit Reasons: 3 month f/u Intake Note: Patient is here to follow up on lower extremity weakness. Nursing Service Director Required: No Electric Motor Control Assembler: Present Accompanied by: Grand Child Allergies No Known Allergies Allergy (Verified 05/15/25 09:22) Medication List - Last Reconciled 05/15/25 by Reny Lizama PA-C efinaconazole 10% (Jublia) 1 appl topical BEDTIME Tobacco use date assessed: 05/15/25 Fall risk assessment: No Falls in past year Last assessed Fall Risk: 05/15/25 Dental Screening Dental Screen Date: 02/05/25 HPI 3 month f/u HPI Details 79-year-old female with past medical history of anemia last seen 02/03 coming in for follow up. In review of the notes, patient was seen in [facility] 04/29/2025 for lower extremity edema found to have superficial blood clot recommending compression stockings and Lasix. Presenting for follow-up of multiple chronic conditions including arthritis, peripheral edema, and anemia. Recent lab work indicated the patient is severely anemic with very low iron levels, and she has started taking iron supplements. Her kidney function was noted to be borderline and had worsened compared to a prior check. The patient acknowledges she does not drink much water. The patient is no longer taking Lasix for her edema. She has difficulty putting on socks due to the swelling and cannot wear compression stockings. Significant symptoms of depression are present, with the patient expressing feelings of hopelessness. Her granddaughter attributes the onset of her severe depression to grieving the loss of her daughter and her subsequent loss of independence, including the inability to drive. Referrals for a cardiac ultrasound, physical therapy, and counseling were previously made, but the patient has not been contacted to schedule these appointments. [facility] Medical History Leg swelling Anxiety Depression Elevated brain natriuretic peptide (BNP) level Surgical History History of hip surgery Family History Mother Ovarian cancer Father No problems noted. Sister No problems noted. Social History Household Members: Family Both parents involved: No Caregiver staying overnight: Yes (daughter will be her caregiver ) Housing: House Are you a primary care specialist to a significant other at home: No Do you presently have visiting nurse or other home services: No Alcohol intake: never Patient Tobacco Use Status: Never used Tobacco e-Cigarette/Vaping Use: Never Used Second Hand Smoke Exposure: No service: No Current occupational status: retired Cognitive needs: No Hearing needs: No Vision needs: No Questionnaire Thrive Questionnaire Date Thrive assessed: 02/05/25 I am a: Patient What is your living situation today?: I have a steady place to live Within the past 12 months, did the food you bought not last and you didn't have the money to get more?: Sometimes True Within the past 12 months, did you worry whether your food would run out before you got money to buy more?: Sometimes True Do you have trouble paying for medicines?: No Do you have trouble getting transportation to medical appointments?: No Do you have trouble paying your heating and electricity bill?: No Do you have trouble taking care of your child, family member or friend?: No Do you have trouble with day-to-day activities such as bathing, preparing meals, shopping, managing finances, etc.?: No Are you currently unemployed and looking for a job?: No Are you interested in more education?: No Currently or been in a relationship where the following occur: No concerns reported THRIVE Score: 2 ROBIN-7 AMB Questionnaire ROBIN-7 Date ROBIN - 7 assessed: 02/05/25 Source: Developed by Drs. Martin Jordan, Heidi Hernandez, Horacio Pagan and colleagues, with an educational candelario from [employer]. Review of Systems Const Denies body aches, Denies chills, Denies fever(s), Denies headache(s) and Denies poor appetite Eyes Reports no additional complaints ENT Denies dizziness and Denies headache(s) Card Denies chest pain, Denies edema, Denies lightheadedness and Denies dyspnea Resp Denies cough and Denies dyspnea GI Denies abdominal pain, Denies nausea and Denies vomiting Reports no additional complaints Musc Reports no additional complaints and Denies abnormal gait Skin/Breast Reports system reviewed and no additional complaints, except as documented Neuro Denies abnormal gait, Denies dizziness and Denies headache(s) Psych Reports no additional complaints Physical exam (Primary Care) Vital Signs: Last Vital Signs Temp 97.1 F 05/15/25 09:08 Pulse 57 05/15/25 09:08 BP 120/62 05/15/25 09:08 Pulse Ox 95 05/15/25 09:08 Oxygen Delivery Method Room Air 05/15/25 09:08 BMI result Body Mass Index 21.9 Tobacco/Smoking Status: Tobacco use Status Tobacco use date assessed 05/15/25 05/15/25 09:15 Patient Tobacco Use Status Never used Tobacco 05/15/25 09:15 e-Cigarette/Vaping Use Never Used 05/15/25 09:15 Thrive Assessment: Date of Thrive Assessment Date Thrive assessed 02/05/25 05/15/25 09:15 Currently or been in a relationship where the following occur: No concerns reported Const General: cooperative, healthy appearing, comfortable and no acute distress Orientation/consciousness: patient oriented x3 HENMT Head: Yes normocephalic Ears: hearing grossly normal bilaterally General nose exam: Normal external nose present Eyes General: appearance normal, both eyes and all related structures Conjunctivae: conjunctivae normal Neck Neck: Yes full ROM and Yes no lymphadenopathy Resp Effort & Inspection: normal respiratory effort Auscultation: clear to auscultation bilaterally, no crackles, no rales, no rhonchi and no wheezes Cardio Rate: regular rate Rhythm: regular rhythm Skin General skin exam: no rashes or lesions noted Neuro General: patient oriented x3 Gait exam (Neuro): Normal gait present Extrem Other: james LE swelling without redness, warmth or tenderness to palpation General: Yes normal to inspection, Yes full ROM and No edema Psych Affect: normal affect Attitude: cooperative Insight: Good insight present (Psych) Judgement: Good judgement present (Psych) Office Procedures Flu Questionnaire Does the patient have a severe egg allergy?: No Does the patient have severe life threatening allergies?: No Does the patient have a fever or illness today?: No Has the patient ever had Guillain-Houston Syndrome?: No Has the patient ever had any past reaction to a flu shot?: No Immunizations Fluarix [id number] (PF) 45 mcg (15 mcg x 3)/0.5 mL IM syringe Performing Provider: Reny Lizama PA-C [facility] Administered by: DM Renee on 05/15/25 09:56 Dose Route Admin Location Dispensed Lot Number Expiration Date NDC Reading Teacher 0.5 mL IM Left Deltoid 0.5 mL [id number] 12/09/25 39281-755-50 [email or web address] VIS Given Date VIS Provided VIS Publication Date 05/15/25 Single Vaccine 24 Eligibility Eligibility Date Funding Source Not [facility] Eligible 05/15/25 Private Coding Level of Care Code Est Pt Level 4 (95801) Diagnoses Depression F32.A Anxiety F41.9 Leg swelling M79.89 Anemia D64.9 CKD (chronic kidney disease) N18.9 Assessment & Plan Assessment & Plan (1) Depression: Code(s): F32.A - Depression, unspecified Category: Medical Plan: The patient exhibits symptoms of severe depression, expressing hopelessness related to grief and loss of independence. She is agreeable to starting medication. The plan is to initiate a low dose of mirtazapine at nighttime to help with depression, anxiety, and sleep. A referral to counseling was also provided. (2) Anxiety: Code(s): F41.9 - Anxiety disorder, unspecified Category: Medical Plan: See above. (3) Leg swelling: Code(s): M79.89 - Other specified soft tissue disorders Category: Medical Plan: The patient presents with significant leg swelling, which is a major problem for her. She is unable to use compression stockings due to difficulty with application. The plan is to apply compression wraps, with instructions for home use, and encourage leg elevation. An urgent reorder for a cardiac ultrasound will be placed to rule out a cardiac etiology as this was supposed to be scheduled months ago. Referrals will be made to vascular surgery for further evaluation and to physical therapy to assist with the legs. (4) Anemia: Code(s): D64.9 - Anemia, unspecified Category: Medical Plan: The patient was found to be severely anemic with very low iron on recent labs. She has started iron supplementation. The plan includes repeating labs this week to assess her response to the supplements. If the anemia does not improve, a referral to hematology will be made for further evaluation and possible iron infusions, as malabsorption is a possibility. (5) CKD (chronic kidney disease): Code(s): N18.9 - Chronic kidney disease, unspecified Category: Medical Plan: Avoid kidney irritants such as NSAIDs and stay well hydrated. Continue to monitor kidney function. Plan This note was constructed using voice recognition software. While every effort has been made to ensure accuracy and log brander, still areas may have been included sometimes these areas may affect the content or meeting of the given symptoms. Total time spent caring for the patient today was 20 minutes. This includes time spent before the visit reviewing the chart, time spent during the visit, and time spent after the visit and documentation. Patient was informed and verbally consented to the use of an ambient scribe for clinic note documentation during this visit. Orders: Orders Influenza [id number] Immunization Today Z23 - Encounter for immunization Referrals Vascular Surgery Referral M79.89 - Other specified soft tissue disorders Medications: New mirtazapine 7.5 mg PO BEDTIME 90 tabs 0RF
[2025-05-15 09:08] VITALS: BP 120/62; PULSE 57; TEMP 36.2; O2SAT 95; BMI 21.9
--- OUTSIDE RECORDS SUMMARY | 2025-05-15 09:45 | XMS_ITS | Patient Health Record ---
Author Organization [facility] Address [address] [place] [address] Care Team Providers Care Customer Loyalty Representative Name Role Phone Stevenson READ, Xochilt Primary Care Provider Eulalio Grijalva Unavailable [phone] Allergies Allergen (clinical drug ingredient) Drug/Non Drug [...] primary osteoarthritis of the ankle and/or foot (715628636) Primary osteoarthrit is, right ankle and foot (M19.071) Active confirmed Plan Of Treatment No Information Insurance Providers Payer Name Payer Address Payer Phone Subscriber Number Group Number Insured Name Patient Relationship to Insured Coverage Start Date Coverage End Date [facility] [address] [place] [address] [id number] Selene Fleming Self - patient is the insured Medical (General) History Medical History History ICD Code osteoarthritis Depression chronic kidney disease stage 3 Periodic Limb Movement Disorder Post Traumatic Stress Disorder Reflux ( GERD) Rheumatoid arthritis Colonic polyps fatigue Osteoporosis Sleep apnea Surgical History Surgery Date(Month/Year) right hip break surgery 2000
--- OUTSIDE RECORDS SUMMARY | 2025-05-15 09:45 | XMS_ITS | Patient Health Record ---
Author Organization [facility] Address [address] [place] [address] Support Name Relationship Address Phone SHERRILL MACHADO Guarantor Unknown [phone] Reason For Referral No Information Medications Medication [...] Status W/U Status Risk Notes Problem Obesity (278045303) Obesity, unspecified (278.00) Active confirmed Major Problem Depressive disorder (38649475) Depressive disorder, not elsewhere classified (311) Active confirmed Major Problem Rotator cuff syndrome of shoulder and allied disorders (726.1) Active confirmed Other Problem Disorder of bursae of shoulder region (27675086) Unspecified disorders of bursae and tendons in shoulder region (726.10) Active confirmed Other Problem Generalized osteoarthrosis (655074602) Osteoarthrosis, generalized (715.0) Active confirmed Major Problem Degenerative joint disease of shoulder region (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) Osteoarthrosis, unspecified whether generalized or localized, shoulder region (715.91) Active confirmed Major Problem Shoulder joint pain (286849562) Pain in joint, shoulder region (719.41) Active confirmed Diag Problem Osteoporosis (60476283) Unspecified osteoporosis (733.00) Active confirmed Major Problem Syncope and collapse (402661531) Syncope and collapse (780.2) Active confirmed Diag Problem Dizziness and giddiness (018605191) Dizziness and giddiness (780.4) Active confirmed Diag Problem Insomnia (365723424) Insomnia, unspecified (780.52) Active confirmed Major Plan Of Treatment No Information Insurance Providers Payer Name Payer Address Payer Phone Subscriber Number Group Number Insured Name Patient Relationship to Insured Coverage Start Date Coverage End Date [facility] [address] [place] [address] [id number] SHERRILL AVILA Self - patient is the insured
== END 2025-05-15 10:00 | disposition home or self-care (01) ==
DX: F32.A Depression, unspecified (principal); F41.9 Anxiety disorder, unspecified; M79.89 Other specified soft tissue disorders; D64.9 Anemia, unspecified; N18.9 Chronic kidney disease, unspecified; Z23 Encounter for immunization

== ENCOUNTER 2025-05-15 08:59 | Outpatient (REF) | payer MEDICARE, OTHER, SELFPAY ==
[2025-05-15 10:32] LABS: MANUAL DIFF FLAG NO
[2025-05-15 10:58] LABS: Hematocrit 43.5 % (37.0-47.0); Hemoglobin 12.9 g/dl (12.0-16.0); Imm Gran Abs Auto 0.06 X10*3/uL (0.00-0.03); Imm Gran Pct Auto 1.0 % (0.0-0.4); Lymphocytes Absolute Auto 1.3 X10*3/uL (1.2-4.9); Mean Corpuscular HGB Conc 29.7 g/dl (31.0-35.0); Mean Corpuscular Hemoglobin 25.4 pg (27.0-33.0); Mean Corpuscular Volume 85.8 fL (80.0-98.0); NRBC Abs Auto 0.000 X10*3/uL (0.0-0.012); NRBC Pct Auto 0.0 /100WBC (0.0-0.2); Platelet Count 299 X10*3/uL (160-400); Red Blood Count 5.07 X10*6/uL (4.20-5.50); White Blood Count 5.8 X10*3/uL (4.8-10.8)
[2025-05-15 12:04] LABS: Ferritin 352 ng/mL (10-250); Iron 16 mcg/dL (30-160); Percent Iron Saturation 12 % (15-50); Total Iron Binding Capacity 133 mcg/dL (228-428); Unsaturated Iron Binding 117 ug/dL
== END 2025-05-15 09:00 | disposition home or self-care (01) ==
LOC: HO.LAB 08:59
DX: Z23 Encounter for immunization (principal); D64.9 Anemia, unspecified
CPT/HCPCS: 36415; 82728; 83540; 85025; 90471; 90656; 99212